=== PATIENT | female | born 1995 | race African-American/Black ===

== ENCOUNTER 2020-10-13 22:48 | Emergency (ER) | payer MEDICAID ==
[~2020-10-13] VITALS: Ht 152.4 cm; Wt 74.8 kg
[2020-10-13 23:04] VITALS: BP 131/82
[2020-10-14] MEDS ORDERED: HYDROcodone/APAP 5/325 MG 1 TAB TAB PO ONE
[2020-10-14] MEDS ORDERED: IBUP-2213 PO (01:44)
[2020-10-14] MEDS ORDERED: ACET-9525 PO (01:50)
[2020-10-14 02:08] VITALS: BP 132/79
== END 2020-10-14 02:08 | disposition home or self-care (01) ==
LOC: MED 22:48
DX: S59.902A Unspecified injury of left elbow, initial encounter (principal); S09.90XA Unspecified injury of head, initial encounter; Z79.899 Other long term (current) drug therapy; V43.52XA Car driver injured in collision with other type car in traffic accident, initial encounter; Y93.89 Activity, other specified; Y92.89 Other specified places as the place of occurrence of the external cause; Y99.8 Other external cause status
CPT/HCPCS: 70450; 71045; 73080; 99284